=== PATIENT | female | born 1955 | race Caucasian/White ===

== ENCOUNTER 2019-09-07 11:01 | Outpatient (REF) | payer OTHER, SELFPAY | END 2019-09-07 11:02 | disposition home or self-care (01) | LOC: LAB 11:01 | PROVIDERS: Family Provider Family Medicine; PCP Family Medicine; Visit Provider Obstetrics & Gynecology | DX: N81.11 Cystocele, midline (principal) | CPT/HCPCS: 87086 ==

== ENCOUNTER 2019-09-11 08:23 | Observation (INO) | payer OTHER, SELFPAY ==
[2019-09-07 12:47] VITALS: BMI 30.2
--- NOTE | 2019-09-07 13:29 | ANES.PREANES ---
Pre-Anesthetic Assessment Pre-Anesthetic Assessment: Height/Weight: Height 1.55 m Weight 72.575 kg Preop Diagnosis: Central cystocele Proposed Procedure: Operation Date: 09/11/19 07:00 Proposed Procedures p Anterior Colporrhaphy 52650 N81.11(Not Applicable) - Ronni Teran MD Familial anesthetic complications: PONV Social: Social History: No alcohol and No tobacco Exam: Pre-Anes Outpt Exam: alert, oriented x 3, clear to auscultation bilaterally and regular rate & rhythm Airway: Cervical ROM: WNL MP: 2 Additional comments: missing Pulmonary: Pulmonary: COPD Comments: steroids within last year for COPD, not on o2, no hospital admissions CV/HEM: CV/HEM: None reported : : None reported Hepatic: Hepatic: None reported GI: GI: GERD Metabolic: Metabolic: None reported Musc/skel: Musc/skel: None reported Neuropsych: Neuropsych: None reported Anesthetic Plan: ASA status: II Anesthesia: General Risk of > 500 ml blood loss (7ml/kg in children): Yes, adequate IV access and fluids planned PFSH Anesthesia PFSH: Social History Smoking and tobacco status: former smoker Alcohol intake: current Alcohol intake frequency: holidays/special occasions only Data Anesthesia Cardiac Studies: No Data to Display
[2019-09-11] VITALS (13 sets, daily range): BP systolic 98–149; BP diastolic 63–91; PULSE 53–86; RESP 14–22; TEMP 36.4–36.9; O2SAT 93–100
--- NOTE | 2019-09-11 06:48 | P.HPUD_ITS ---
H&P update H&P Update: DATE OF SURGERY/PROCEDURE: 09/11/19 DATE H&P PERFORMED: H&P UPDATE INFORMATION: H&P completed within last 30 days, No changes to prior documentation and H&P is in [facility] on date indicated PREOP DIAGNOSIS: Midline Cystocele PLANNED PROCEDURE: Operation Date: 09/11/19 07:00 Proposed Procedures p Anterior Colporrhaphy 70553 N81.11(Not Applicable) - Ronni Teran MD Full H&P Perinent History: Medical/Surgical History: Medical History (Updated 09/10/19 @ 17:28 by Ronni Teran MD) COPD (chronic obstructive pulmonary disease) (Acute) Gastroesophageal reflux (Acute) Hydradenitis (Acute) Family History: Family History (Updated 09/03/19 @ 13:32 by Sumaya Ortega, RN) Mother Ovarian cancer Stroke Hypertension Hypercholesteremia Father Heart disease Social History: Social History Smoking and tobacco status: former smoker Alcohol intake: current Alcohol intake frequency: holidays/special occasions only
[2019-09-11] MEDS: phenazopyridine 100 mg Tablet 200 MG PO ×2 (06:49→14:48)
[2019-09-11] MEDS: sodium chloride 0.9% 1,000 ML 30 ML IV (06:49)
[2019-09-11] MEDS: ketorolac 30 mg/mL INJ IVP ×2 (06:51→14:48)
--- NOTE | 2019-09-11 06:56 | P.ANESUD_ITS ---
Pre-Anesthetic Update Pre-Anesthetic Assessment: Date of Surgery/Procedure: 09/11/19 Preop Nickie gnosis: Midline Cystocele Proposed Procedure: Operation Date: 09/11/19 07:00 Proposed Procedures p Anterior Colporrhaphy 27154 N81.11(Not Applicable) - Ronni Teran MD Any changes to Pre-Anesthetic Assessment?: No Last Intake: NPO > 8 hrs Exam: Pre-Anes Outpt Exam: alert, oriented x 3, clear to auscultation bilaterally and regular rate & rhythm Cardiac Studies: No Data to Display
[2019-09-11] MEDS: vasopressin 20 unit/mL INJ INJECTION (07:48)
--- NOTE | 2019-09-11 08:23 | P.OP_ITS ---
Operative Report Date of procedure: September 11, 2019 Pre-op Diagnosis: Midline Cystocele Post-op Diagnosis: Midline cystocele. Procedure Done: Anterior colporrhaphy Specimens removed/disposition: None Surgeon: Ronni Teran Anesthesia: General Estimated blood loss (mL): 20 IV fluids (mL): 500 Brief History: Patient is a 64-year-old white female 2, para 2 status post hysterectomy 1978 who had presented to the office with a complaint of a bulge at the vaginal opening that had been present for a while . She states that it has not worsened since she first noticed it. The bulge protrudes further with standing and straining. She denied any pain associated with that she denied any vaginal bleeding. She denied any urinary symptoms or urinary incontinence. On examination she had been found to have a well supported vaginal cuff with a second-degree midline cystocele at rest which descends to a third degree with Valsalva. Treatment options were discussed with her and she wished to proceed to surgical repair. Procedure: Patient was taken to the operating room were general anesthesia was obtained. She was prepped and draped in usual sterile fashion dorsal supine position with legs in Eduardo style stirrups. Sequential compression boots were placed prior to starting the case. Exam under anesthesia was performed. She was noted to have third-degree cy stocele. She had minimal vault prolapse under anesthesia. Chandler catheter was inserted. Anterior vaginal wall was injected with dilute Pitressin solution. A midline incision was made along the anterior vaginal wall. The edges were grasp with Allis clamps and skin was dissected from the vesico-vaginal fascia using a combination of sharp and blunt dissection. This was extended from the mid uret hra to the vaginal vault and to the lateral aspects of the anterior vaginal wall. Due to the degree of prolapse, decision was made to perform a 2 layer reduction of the cystocele. Using 2-0 Vicryl suture, stitches were placed approximately a third of the distance from the midline to the lateral wall in the vesico-vaginal fascia. These were brought across to the contralateral side and placed at approximately the same distance from the midline and at approximately the same level. Multiple stitches were placed along the anterior wall. These were then tied, reducing the cystocele. Using 2-0 Vicryl suture, stitches were placed laterally into the lateral sides of the vesico-vaginal fascia and brought across to the contralateral side at approximately the same level, picking up the lateral side. Multiple stitches were placed along the anterior wall. These were tied in the midline eliminating the cystocele. Excess vaginal mucosa was excised. The vaginal mucosa was closed using 3-0 Steve ryl suture in a running locking fashion. The vagina was packed with 1 inch Nu Gauze. Patient tolerated procedure well. Sponge, needle, and instrument counts were correct. DRAINS: Chandler catheter COMPLICATIONS: None FINDINGS: Third-degree cystocele with minimal vault prolapse. POSTOPERATIVE STATUS: The patient was transferred to the recovery room in satisfactory condition.
[2019-09-11] MEDS: ondansetron 2 mg/ML SDV 2 mL 4 MG IVP ×2 (09:35→10:58)
--- NOTE | 2019-09-11 10:11 | ANES.PREANE2 ---
Pre-Anesthetic Assessment Pre-Anesthetic Assessment: Height/Weight: Height 1.55 m Weight 72.575 kg Temp Pulse Resp BP Pulse Ox 98.2 F 58 L 17 131/91 94 09/11/19 08:55 09/11/19 08:55 09/11/19 08:55 09/11/19 08:55 09/11/19 08:55 Preop Diagnosis: Midline Cystocele Proposed Procedure: Operation Date: 09/11/19 07:00 Proposed Procedures p Anterior Colporrhaphy 05147 N81.11(Not Applicable) - Ronni Teran MD Last intake: Intake Last Liquid Date 09/10/19 Last Liquid Time 21:00 Last Solid Date 09/10/19 Last Solid Time 21:00 Meds/Allergies Current Medications: Current Medications Generic Name Dose Route Start Last Admin Trade Name Freq PRN Reason Stop Dose Admin Ondansetron HCl 4 mg 09/11/19 09:02 09/11/19 09:35 Zofran IVP 4 mg Q4H PRN Administration NAUSEA AND VOMITI NG PFSH Anesthesia PFSH: Social History Smoking and tobacco status: former smoker Alcohol intake: current Alcohol intake frequency: holidays/special occasions only Data Anesthesia Cardiac Studies: No Data to Display
[2019-09-11] MEDS: scopolamine 1.5 Patch 1 PATCH TRANSDERMA (11:00)
[2019-09-11] MEDS: lactated ringers 1,000 ML 120 ML IV (16:04)
[2019-09-11] MEDS: docusate sodium 100 mg Capsule PO (19:17)
[2019-09-11] MEDS: acetaminophen 325 mg Tablet 650 MG PO (19:19)
[2019-09-12] MEDS: lactated ringers 1,000 ML 120 ML IV (01:03)
[2019-09-12] MEDS: phenazopyridine 100 mg Tablet 200 MG PO ×2 (01:04→08:35)
[2019-09-12 04:10] VITALS: BP 104/70; PULSE 74; RESP 18; TEMP 36.6; O2SAT 95
[2019-09-12 05:15] LABS: Basophils % 0.7 %; Eosinophils # 0.2 10^3/uL (0.0-0.8); Hematocrit 36.8 % (37.0-47.0); Hemoglobin 11.4 g/dL (11.5-15.3); Mean Corpuscular Hemoglobin 28.4 pg (28.0-34.0); Mean Corpuscular Volume 91.8 fL (81-99); Mean Platelet Volume 12.8 fL (7.4-10.4); Monocytes # 0.5 10^3/uL (0.2-0.9); Monocytes % 8.4 %; Neutrophils # 3.3 10^3/uL (1.8-7.7); Neutrophils % 54.6 %; Nucleated Red Blood Cells % 0 %; Platelet Count 167 10^3/cmm (130-400); Red Blood Count 4.01 10^6/uL (4.1-5.3); Red Cell Distribution Width 14.3 % (12.1-15.1); White Blood Count 6.1 10^3/uL (4.0-10.0)
[2019-09-12] MEDS: pantoprazole DR 40 mg Tablet PO (08:35)
[2019-09-12] MEDS: docusate sodium 100 mg Capsule PO (08:35)
[2019-09-12 08:40] VITALS: BP 129/79; PULSE 80; RESP 16
--- NOTE | 2019-09-12 09:35 | P.PN_ITS ---
Subjective Subjective: Interval history: States doing much better this morning. States nausea and vomiting has gone completely away now. States pain is been well controlled. Denies lightheadedness or dizziness with ambulation. Denies shortness of breath or chest pains. Reports tolerating a regular diet this morning. Vitals/I&O/Wt Last Vital Signs Temp 97.9 F 09/12/19 04:10 Pulse 80 09/12/19 08:40 Resp 16 09/12/19 08:40 BP 129/79 09/12/19 08:40 Pulse Ox 95 09/12/19 04:10 09/11/19 09/12/19 09/12/19 22:59 06:59 14:59 Intake Total 501 / 551 1000 / 1551 774 / 774 Output Total 1900 / 2470 1300 / 3770 250 / 250 Balance -1399 / -1919 -300 / -2219 524 / 524 Physical Exam Const: COMMON NORMALS: no apparent distress, average body habitus, alert and well nourished GENERAL APPEARANCE: well developed ORIENTATION/CONSCIOUSNESS: Yes oriented to person, Yes oriented to place and Yes oriented to time Resp: COMMON NORMALS: normal respiratory effort and clear to auscultation bilaterally AUSCULTATION: clear to auscultation bilaterally Cardio: COMMON NORMALS: regular rate, regular rhythm, no gallops, no murmurs and no rub RATE: regular rate RHYTHM: regular rhythm GI: COMMON NORMALS: soft to palpation, no hepatosplenomegaly and no masses AUSCULTATION: Yes normoactive bowel sounds PALPATION: Yes soft, Yes tender (Suprapubic), Yes no hepatosplenomegaly and No hernia : EXTERNAL FEMALE EXAM: No hernia Neuro: SENSORIUM/ORIENTATION: Yes alert, Yes oriented to person, Yes oriented to place and Yes oriented to time Psych: COMMON NORMALS: affect normal MOOD & AFFECT: Yes euthymic mood Urinary Catheter Management^: Chandler: Cath Placed During This Visit: yes, but has since been removed by the nurse Reason for Continuing Indwelling Catheter: Perioperative Use in Selected Surgeries Urinary Catheter Date of Insertion: 09/11/19 Urinary Catheter Time of Insertion: 07:40 Date Urinary Catheter Removed: 09/12/19 Time Urinary Catheter Discontinued: 07:35 Data : 09/12/19 04:08 A&P Assessment and plan (1) Cystocele, midline: Postoperative day 1, status post anterior colporrhaphy. Patient is doing well overall today. She had significant nausea and vomiting yesterday after surgery. However, this is now resolved. Increase activities today. Chandler catheter and vaginal packing were removed this morning. Voiding trials have been started. Status: Acute Code(s): N81.11 - Cystocele, midline (2) COPD (chronic obstructive pulmonary disease): Patient's inhaler has been continued as needed. Status: Acute Code(s): J44.9 - Chronic obstructive pulmonary disease, unspecified Attestations Medical Necessity Statement*: Patient is first day following surgery. Plan is for her to go home today. 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
[2019-09-12] MEDS: LORazepam 0.5 mg Tablet PO (09:51)
[2019-09-12 10:52] VITALS: BP 119/77; PULSE 80; RESP 17; TEMP 37
[2019-09-12 10:56] VITALS: BP 119/77; PULSE 80; RESP 17; TEMP 37
--- NOTE | 2019-09-12 11:27 | PM.DCS ---
Discharge Providers Date of Admission: 09/11/19 08:23 Date of Discharge: Date of Discharge: September 12, 2019 Attending Provider at Admission: Ronni Teran MD Attending Provider at Discharge: Ronni Teran MD Primary Care Provider: Ryan Connor MD Diagnoses at Discharge Discharge Diagnosis (1) Cystocele, midline: Status: Acute (2) COPD (chronic obstructive pulmonary disease): Status: Acute Reason for Visit Reason for Visit: Reason For Visit: Midline Cystocele N81.11 Physical Exam Urinary Catheter Management^: Chandler: Cath Placed During This Visit: yes, but has since been removed by the nurse Reason for Continuing Indwelling Catheter: Perioperative Use in Selected Surgeries Urinary Catheter Date of Insertion: 09/11/19 Urinary Catheter Time of Insertion: 07:40 Date Urinary Catheter Removed: 09/12/19 Time Urinary Catheter Discontinued: 07:35 Discharge Data Data Completed and Pending: Labs from last 24 hours 09/12/19 04:08 WBC 6.1 RBC 4.01 L Hgb 11.4 L Hct 36.8 L MCV 91.8 MCH 28.4 MCHC 31.0 RDW 14.3 Plt Count 167 MPV 12.8 H Neut % (Auto) 54.6 Lymph % (Auto) 33.0 [place] % (Auto) 8.4 Eos % (Auto) 3.0 Baso % (Auto) 0.7 Neut # (Auto) 3.3 Lymph # (Auto) 2.0 [place] # (Auto) 0.5 Eos # (Auto) 0.2 Baso # (Auto) 0.0 Nucleated RBC % (a uto) 0 Nucleated RBCs # 0.0 Vitals: Last Vital Signs Temp 98.6 F 09/12/19 10:56 Pulse 80 09/12/19 10:56 Resp 17 09/12/19 10:56 BP 119/77 09/12/19 10:56 Pulse Ox 95 09/12/19 04:10 Discharge Plan Discharge Patient Disposition: Home, Self-Care Condition: Stable Prescriptions: Continued lansoprazole 30 mg tablet,disintegrat, delay rel 30 mg PO QDAY RF: 0 naproxen sodium [Aleve] 220 mg capsule 220 mg PO Q12H RF: 0 Spiriva Respimat 2.5 mcg/actuation mist 2 puff INHALATION .PRN PRN (Reason: Dyspnea) RF: 0 Held estradiol [Estrace] 0.01 % (0.1 mg/gram) cream 0.5 gm VAGINAL .twice weekly Qty: 42.5 RF: 0 Hold Instructions: Resume on 10/03/19. will determine when to restart after office visit. Discharge Orders: Discharge Order (Routine); Ordered 09/12/19 Ordered By: Ronni Teran Referrals: Ronni Teran MD [Physician] - 10/04/19 12:45 pm (Please keep scheduled follow up appointments on October 04, 2019) Discharge Diet: Advance as tolerated and Regular Discharge Activity: Limit activity as instructed Patient Instructions: Cystocele (GEN), Chronic Urinary Retention in Women (GEN), OB Discharge Report, OB Laproscopic Surgery - [facility], OB Anesthesia Instructions, OB Food/Drug Interaction Guide Discharge Attestations Time Spent in Discharge Care*: less than 30 min Quality Metrics Clinical Quality Measures During this hospital stay, did patient experience: None Coding Level of Care Code 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
== END 2019-09-12 11:58 | disposition home or self-care (01) ==
LOC: OBGYN 08:26
PROVIDERS: Admitting Provider Obstetrics & Gynecology; Family Provider Family Medicine; PCP Family Medicine; Visit Provider Obstetrics & Gynecology
PROC: 0JQC0ZZ Repair Pelvic Region Subcutaneous Tissue and Fascia, Open Approach (ICD-10-PCS; CPT 57240; principal; 2019-09-11 07:00)
DX: N81.11 Cystocele, midline (principal); Z90.710 Acquired absence of both cervix and uterus; J44.9 Chronic obstructive pulmonary disease, unspecified; Z82.49 Family history of ischemic heart disease and other diseases of the circulatory system; Z80.41 Family history of malignant neoplasm of ovary; Z87.891 Personal history of nicotine dependence; Z79.82 Long term (current) use of aspirin; Z79.1 Long term (current) use of non-steroidal anti-inflammatories (NSAID); L73.2 Hidradenitis suppurativa
CPT/HCPCS: 57240; 12345; 36415; 51798; 73221; 85025; 96361; 96374; 96375; G0378; J0690; J1885; J2405; J2704; J2710; J3010; J3490; J7030

== ENCOUNTER 2020-08-05 22:02 | Emergency (ER) | payer BC, SELFPAY ==
[2020-08-05 22:14] VITALS: BP 126/72; PULSE 96; RESP 24; TEMP 36.5; O2SAT 95; BMI 32.1
--- NOTE | 2020-08-05 22:53 | XRR_ITS ---
PROCEDURE INFORMATION: Exam: XR Chest, 1 View Exam date and time: 08/05/2020 11:00 PM Age: 65 years old Clinical indication: Shortness of breath; Additional info: SOB TECHNIQUE: Imaging protocol: XR of the chest Views: 1 view. COMPARISON: [facility] Chest 2 views 12/20/2018 7:28 AM FINDINGS: Lungs: Unremarkable. No consolidation. Pleural space: Unremarkable. No pleural effusion. No pneumothorax. Heart/Mediastinum: Unremarkable. No cardiomegaly. Bones/joints: Unremarkable. XR/XR chest 1V portable [id number] IMPRESSION: No acute findings.
--- NOTE | 2020-08-05 22:53 | ECG_ITS ---
[facility] Test Date: 2020-08-05 Pat Name: Kristi Noonan Department: Room: Gender: Female Rn Observation: : 1955 Requested By: Dago Shipman Order Number: [id number] Dobson MD: Doris Valencia M.D. 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 [email or web address]
--- NOTE | 2020-08-05 22:55 | ED_ITS ---
HPI - COVID General: Chief Complaint: COVID symptoms Stated Complaint: Covid symptoms Time Seen by Provider: 08/05/20 22:53 Triage information: Has fever, cough or shortness of breath . Exposure to COVID + person last 14 days History of Present Illness: HPI Narrative: Patient is a 65-year-old female comes to the ED with Covid symptoms. Past medical history of COPD. Patient is not on any oxygen at home. Patient says her tested positive for COVID- 19 last week. She has not gotten any Covid testing since her tested positive. She states that she has had shortness of breath, body aches, nausea/vomiting and diarrhea since July 31. Patient says she has had multiple episodes of emesis over the past several days and states she is not eaten much since onset of symptoms. Has a dry cough nonproductive cough for the last couple days as well. Patient has an inhaler at home for COPD and she uses it and says she has some mild improvement in symptoms. Endorses fever. COVID 19 common symptoms: positive fever(s), chills, non-productive cough, body aches, nausea, vomiting and diarrhea; negative productive cough, dyspnea, fatigue, headache(s), throat pain or nasal congestion COVID 19 other sytmptoms: negative chest pain COVID Results: SARS-CoV-2 Antigen (Rapid) Positive (Negative) H 08/05/20 23:51 08/05/20 Review of Systems Const: Reports: fever(s), chills, body aches and change in appetite (decreased); Denies: fatigue Eyes: Denies: change in vision or eye discomfort ENMT: Denies: throat pain, odynophagia, nasal discharge or nasal congestion Card: Denies: chest pain, palpitations, edema, swelling of feet/ankles, dyspnea on exertion or orthopnea Resp: Reports: non-productive cough; Denies: dyspnea or productive cough GI: Reports: nausea, vomiting and diarrhea; Denies: abdominal pain, constipation or hematochezia : Denies: flank pain, dysuria or hematuria Musc: Denies: neck pain, back pain or extremity swelling Skin/Breast: Denies: rash or new lesions Neuro: Denies: headache(s), numbness in extremities or weakness in extremities [facility] ED PFSH: Medical History COPD (chronic obstructive pulmonary disease) Gastroesophageal reflux Hydradenitis Surgical History History of total vaginal hysterectomy (TVH) (~1978) TVH with questionable BSO (patient does not know if ovaries were removed or not). History of tubal ligation LOW VERTICAL INCISION History of vaginal surgery (09/11/19) Anterior colporrhaphy. Performed by Dr. Teran at [facility] in [place], [place]. Family History Mother Ovarian cancer Stroke Hypertension Hypercholesteremia Father Heart disease Social History Smoking and tobacco status: former smoker Alcohol intake: current Alcohol intake frequency: holidays/special occasions only Physical Exam Const: COMMON NORMALS: no acute distress, patient oriented x3 and alert GENERAL APPEARANCE: cooperative and comfortable HENMT: COMMON NORMALS: normocephalic HEAD & SCALP: normocephalic MOUTH: Normal oral and palatal mucosa present and moist mucous membranes abnormal (mild) Details: parched THROAT: posterior oropharynx normal and uvula midline Eye: COMMON NORMALS: Equal, round and reactive pupils present PUPIL: Yes Equal, round and reactive pupils present Neck/C-Spine: COMMON NORMALS: supple GENERAL: Yes normal visual inspection Resp: COMMON NORMALS: normal respiratory effort, No retractions, No use of accessory muscles and clear to auscultation bilaterally EFFORT & INSPECTION: Yes able to speak in complete sentences and Yes tachypneic (Respiration rate around 22) AUSCULTATION: clear to auscultation bilaterally Cardio: COMMON NORMALS: regular rate, regular rhythm, S1 normal heart sound present, S2 normal heart sound present, No gallops present (Cardio), No clicks present (Cardio), No murmurs present (Cardio) and Peripheral pulses 2+ throughout RATE: regular rate RHYTHM: regular rhythm HEART SOUNDS: S1 normal heart sound present and S2 normal heart sound present PERIPHERAL PULSES: Peripheral pulses 2+ throughout GI: COMMON NORMALS: Normal to inspection, nondistended, normoactive bowel sounds present, Soft to palpation, non-tender and no masses PALPATION: Yes Soft to palpation : COMMON NORMALS: Yes no CVA tenderness BLADDER/KIDNEY EXAM: Yes no CVA tenderness Back/Pelvis: COMMON NORMALS: no CVA tenderness Extremity: COMMON NORMALS: normal to inspection and no pedal edema Neuro: COMMON NORMALS: patient oriented x3 and moves all extremities SENSORIUM/ORIENTATION: Yes alert Skin: GENERAL SKIN EXAM: dry skin Course Reevaluation(s): Reevaluation #1: Patient is a candidate for monoclonal antibody treatment. I discussed monoclonal antibody treatment risk benefits with patient and patient would like to get treatment. I told her I will fill out all the forms needed and only the consent form signed by her to get her set up for monoclonal antibody treatment tomorrow at outpatient services at [facility]. Time: 01:25 Vital Signs: Vital signs: Vital Signs Temperature 97.7 F 08/05/20 22:14 Pulse Rate 94 08/06/20 01:08 Respiratory Rate 18 08/06/20 01:03 Blood Pressure 120/75 08/06/20 00:30 Pulse Oximetry 94 08/06/20 01:03 MDM - COVID MDM Narrative: Medical decision making narrative: Patient is a 65-year-old female comes to the ED with Covid symptoms specially shortness of breath. Past medical history of COPD. She does not use oxygen at home. Patient's tested positive for COVID-19 about a week ago. Lungs are clear to auscultation bilaterally. O2 sat 94% on room air and respiration rate 18. EKG showed normal sinus rhythm with no ST segment elevation or depression seen. Troponin negative. CBC and CMP was unremarkable. Covid rapid test positive. Chest x- ray showed some possible groundglass infiltrates in the lower lobes bilaterally suggestive of viral pneumonia-COVID. Patient was given IV fluids, Zofran, Solu- Medrol and albuterol inhaler treatment. Patient tested positive for Covid and having medical history of COPD she was a good candidate for monoclonal antibody treatment. I discussed monoclonal antibody treatment with patient and she agreed and would like to receive treatment. All paperwork filled out and patient signed consent form. She was told to call scheduling in the morning to schedule treatment. Patient was discharged and sent home with a prescription for azithromycin and Medrol Dosepak. Return to ED precautions given. Patient understood and agreed with plan. Lab Data: Attestation: I reviewed the patient's lab results. Labs: Lab Results 08/05/20 08/05/20 08/05/20 Range/Units 23:45 23:45 23:45 WBC 4.0 (4.0-10.0) 10^3/ uL RBC 4.81 (4.1-5.3) 10^6/u L Hgb 13.7 (11.5-15.3) g/dL Hct 43.5 (37.0-47.0) % MCV 90.4 (81-99) fL MCH 28.5 (28.0-34.0) pg MCHC 31.5 (30.0-36.0) g/dL RDW 13.8 (12.1-15.1) % Plt Count 142 (130-400) 10^3/c mm MPV 12.6 H (7.4-10.4) fL Neut % (Auto) 68.9 % Lymph % (Auto) 23.8 % [place] % (Auto) 6.8 % Eos % (Auto) 0.0 % Baso % (Auto) 0.0 % Neut # (Auto) 2.75 (1.8-7.7) 10^3/u L Lymph # (Auto) 1.0 (0.8-4.8) 10^3/u L [place] # (Auto) 0.3 (0.2-0.9) 10^3/u L Eos # (Auto) 0.0 (0.0-0.8) 10^3/u L Baso # (Auto) 0.0 (0.0-0.1) 10^3/u L Nucleated RBC % (a uto) 0 % Nucleated RBCs # 0.0 /100WBC Sodium 136 (136-145) mmol/L Potassium 3.5 (3.5-5.1) mmol/L Chloride 98 (98-107) mmol/L Carbon Dioxide 27 (22-29) mmol/L Anion Gap 14.5 (5-19) BUN 13 (8-23) mg/dL Creatinine 0.7 (0.5-0.9) mg/dL GFR Calculation 84.2 L (90-130) mL/min Glucose 112 (65-115) mg/dL Calculated Osmolal ity 283 L (285-295) mOsm/k g Calcium 9.3 (8.5-10.5) mg/dL Total Bilirubin 0.3 (0.15-1.2) mg/dL AST 45 H (0-32) U/L ALT 37 H (0-33) U/L Alkaline Phosphata se 190 H (35-105) IU/L Troponin T Baselin e 8 (0-10) ng/L Total Protein 7.2 (6.6-8.7) g/dL Albumin 4.0 (3.5-5.2) g/dL Globulin 3.2 (1.3-4.6) g/dL Lipase 51 (13-60) U/L Urine Color (Yellow) Urine Appearance (CLEAR) Urine pH (5-7) Ur Specific Gravit y (1.005-1.030) Urine Protein (Negative) Urine Glucose (UA) (Normal) Urine Ketones (Negative) Urine Blood (Negative) Urine Nitrate (Negative) Urine Bilirubin (Negative) Urine Urobilinogen (Negative) mg/dL Ur Leukocyte Aggie ase (Negative) Urine RBC (0-2) /hpf Urine WBC (0-5) /hpf Ur Squamous Epith Cells (0-5) /hpf Amorphous Sediment Urine Bacteria (NONE) /hpf SARS-CoV-2 Ag (Rap id) (Negative) 08/05/20 08/06/20 Range/Units 23:51 00:33 WBC (4.0-10.0) 10^3/ uL RBC (4.1-5.3) 10^6/u L Hgb (11.5-15.3) g/dL Hct (37.0-47.0) % MCV (81-99) fL MCH (28.0-34.0) pg MCHC (30.0-36.0) g/dL RDW (12.1-15.1) % Plt Count (130-400) 10^3/c mm MPV (7.4-10.4) fL Neut % (Auto) % Lymph % (Auto) % [place] % (Auto) % Eos % (Auto) % Baso % (Auto) % Neut # (Auto) (1.8-7.7) 10^3/u L Lymph # (Auto) (0.8-4.8) 10^3/u L [place] # (Auto) (0.2-0.9) 10^3/u L Eos # (Auto) (0.0-0.8) 10^3/u L Baso # (Auto) (0.0-0.1) 10^3/u L Nucleated RBC % (a uto) % Nucleated RBCs # /100WBC Sodium (136-145) mmol/L Potassium (3.5-5.1) mmol/L Chloride (98-107) mmol/L Carbon Dioxide (22-29) mmol/L Anion Gap (5-19) BUN (8-23) mg/dL Creatinine (0.5-0.9) mg/dL GFR Calculation (90-130) mL/min Glucose (65-115) mg/dL Calculated Osmolal ity (285-295) mOsm/k g Calcium (8.5-10.5) mg/dL Total Bilirubin (0.15-1.2) mg/dL AST (0-32) U/L ALT (0-33) U/L Alkaline Phosphata se (35-105) IU/L Troponin T Baselin e (0-10) ng/L Total Protein (6.6-8.7) g/dL Albumin (3.5-5.2) g/dL Globulin (1.3-4.6) g/dL Lipase (13-60) U/L Urine Color Yellow (Yellow) Urine Appearance Clear (CLEAR) Urine pH 5.0 (5-7) Ur Specific Gravit y 1.015 (1.005-1.030) Urine Protein Neg (Negative) Urine Glucose (UA) Norm (Normal) Urine Ketones 1+ H (Negative) Urine Blood Neg (Negative) Urine Nitrate Negative (Negative) Urine Bilirubin Neg (Negative) Urine Urobilinogen Norm (Negative) mg/dL Ur Leukocyte Aggie ase Negative (Negative) Urine RBC 0-4 H (0-2) /hpf Urine WBC 0-4 H (0-5) /hpf Ur Squamous Epith Cells 10-15 H (0-5) /hpf Amorphous Sediment Not Reportable Urine Bacteria 1+ H (NONE) /hpf SARS-CoV-2 Ag (Rap id) Positive H (Negative) Imaging Data: CXR: Attestation: I personally reviewed and interpreted this imaging study as follows: My impression: Chest x-ray?groundglass appearance of the lower lobes bilaterally suggestive of viral pneumonitis likely Covid. EKG Data: EKG 1: Attestation: I personally reviewed and interpreted this EKG as follows: EKG interpretation date: 08/06/20 Interpretation: Normal sinus rhythm, 87 bpm, no ST segment elevation or depression seen. COVID Results: SARS-CoV-2 Antigen (Rapid) Positive (Negative) H 08/05/20 23:51 08/05/20 Discharge Plan Discharge Patient Disposition: Home Clinical Impression: COVID-19 Condition: Stable Prescriptions: New azithromycin 250 mg tablet See Rx Instructions .ROUTE .COMPLEX Qty: 6 RF: 0 methylprednisolone 4 mg tablets,dose pack See Rx Instructions .ROUTE .COMPLEX Qty: 21 RF: 0 No Action lansoprazole 30 mg tablet,disintegrat, delay rel 30 mg PO QDAY RF: 0 naproxen sodium [Aleve] 220 mg capsule 220 mg PO Q12H RF: 0 Spiriva Respimat 2.5 mcg/actuation mist 2 puff INHALATION .PRN PRN (Reason: Dyspnea) RF: 0 Discharge Orders: Discharge ED (Routine); Ordered 08/06/20 Ordered By: Dago Shipman Referrals: Ryan Connor MD [Primary Care Provider] - Discharge Diet: Regular Discharge Activity: Limit activity as instructed Patient Instructions: Viral Syndrome (ED) Activity Restrictions/Additional Instructions: Contact scheduling at [phone] in the morning to set up monoclonal antibody treatment. Follow-up with medical provider as directed in 7-10 days.. Self quarantine for the next 12 days. Use your previously prescribed inhaler as needed. Take medications as prescribed. Take Tylenol for fevers. Drink plenty of fluids and stay hydrated. Symptom management with [id number] cough and nasal decongestant meds. Return to the ER or your medical provider if condition worsens. Please read and understand discharge instructions. If any questions, please ask. Coding Level of Care Code ED Blood Bank Calendar Control Clerk for Teto Fwd Exam Comprehensive
[2020-08-05] MEDS: ondansetron 2 mg/ML SDV 2 mL 4 MG IVP (23:41)
[2020-08-05] MEDS: sodium chloride 0.9% 1,000 ML 999 ML IV (23:42)
[2020-08-05 23:57] VITALS: BP 127/73; PULSE 95; O2SAT 92
[2020-08-06 00:07] LABS: Hematocrit 43.5 % (37.0-47.0); Hemoglobin 13.7 g/dL (11.5-15.3); Lymphocytes % 23.8 %; Mean Corpuscular HGB Conc 31.5 g/dL (30.0-36.0); Mean Corpuscular Hemoglobin 28.5 pg (28.0-34.0); Mean Corpuscular Volume 90.4 fL (81-99); Mean Platelet Volume 12.6 fL (7.4-10.4); Monocytes # 0.3 10^3/uL (0.2-0.9); Monocytes % 6.8 %; Neutrophils # 2.75 10^3/uL (1.8-7.7); Neutrophils % 68.9 %; Nucleated Red Blood Cells % 0 %; Platelet Count 142 10^3/cmm (130-400); Red Blood Count 4.81 10^6/uL (4.1-5.3); Red Cell Distribution Width 13.8 % (12.1-15.1)
[2020-08-06 00:25] LABS: Troponin(5th) Baseline 8 ng/L (0-10)
[2020-08-06 00:27] LABS: Alanine Aminotransferase 37 U/L (0-33); Alkaline Phosphatase 190 IU/L (35-105); Anion Gap 14.5 (5-19); Aspartate Amino Transferase 45 U/L (0-32); Blood Urea Nitrogen 13 mg/dL (8-23); Calcium 9.3 mg/dL (8.5-10.5); Carbon Dioxide 27 mmol/L (22-29); Chloride 98 mmol/L (98-107); Globulin 3.2 g/dL (1.3-4.6); Glomerular Filtration Rate 84.2 mL/min (90-130); Glucose 112 mg/dL (65-115); Lipase 51 U/L (13-60); Osmolality Calculated 283 mOsm/kg (285-295); Potassium 3.5 mmol/L (3.5-5.1); Sodium 136 mmol/L (136-145); Total Bilirubin 0.3 mg/dL (0.15-1.2); Total Protein 7.2 g/dL (6.6-8.7)
[2020-08-06 00:30] VITALS: BP 120/75; PULSE 90; O2SAT 92
[2020-08-06 00:39] LABS: SARS Covid-2 Antigen Positive (Negative)
[2020-08-06 00:47] LABS: Bilirubin Urine Neg (Negative); Blood Urine Neg (Negative); Glucose Urine UA Norm (Normal); Ketones Urine 1+ (Negative); Leukocyte Esterase Urine Negative (Negative); Nitrate Urine Negative (Negative); Protein Urine Neg (Negative); Specific Gravity, Urine 1.015 (1.005-1.030); Urine Appearance Clear (CLEAR); Urine Color Yellow (Yellow); Urobilinogen Urine Norm (Negative)
[2020-08-06 00:48] LABS: Add Urine Culture? No; Bacteria Urine 1+ /hpf; RBC Urine 0-4 /hpf (0-2); WBC Urine 0-4 /hpf (0-5)
--- NOTE | 2020-08-06 00:53 | ECG_ITS ---
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 Measurements Intervals [place] Rate: 87 P: 56 OR: 162 QRS: -15 QRSD: 87 T: 60 QT: 357 QTc: 431 Interpretive Statements SINUS RHYTHM POSSIBLE RIGHT VENTRICULAR CONDUCTION DELAY [RSR (QR) IN V1/V2] MINIMAL ST DEPRESSION [0.025+ mV ST DEPRESSION] Compared to ECG 08/05/2020 22:13:16 Sinus tachycardia no longer present ST (T wave) deviation still present Electronically Signed On 08-06-2020 16:55:15 RESEARCH NEUROPSYCHOLOGIST by Doris Valencia M.D. [id number] f
[2020-08-06 01:03] VITALS: PULSE 90; RESP 18; O2SAT 93; O2SAT 94
[2020-08-06] MEDS: albuterol 8 gm MDI 2 PUFF INHALATION (01:03)
[2020-08-06 01:08] VITALS: PULSE 94
[2020-08-06 02:08] VITALS: BP 139/81; PULSE 94; O2SAT 90
== END 2020-08-06 02:10 | disposition home or self-care (01) ==
PROVIDERS: Emergency Provider Physician Assistant; PCP Family Medicine
DX: U07.1 COVID-19 (principal); J44.9 Chronic obstructive pulmonary disease, unspecified; Z87.891 Personal history of nicotine dependence
CPT/HCPCS: 12345; 71045; 80053; 81001; 83690; 84484; 85025; 87426; 93005; 94640; 96361; 96374; 96375; 99283; 99284; 99291; J2405; J2930; J3535; J7030

== ENCOUNTER 2020-08-06 10:01 | Outpatient (CLI) | payer BC, SELFPAY ==
[2020-08-06 10:12] VITALS: BP 118/83; PULSE 101; RESP 18; TEMP 36.3; O2SAT 94; BMI 28.3
[2020-08-06 11:04] VITALS: BP 115/73; PULSE 85; RESP 20; TEMP 36.6; O2SAT 93
[2020-08-06 11:15] VITALS: BP 116/68; PULSE 87; RESP 19; TEMP 36.6; O2SAT 90
[2020-08-06 12:55] VITALS: BP 116/75; PULSE 74; RESP 18; TEMP 36.6; O2SAT 92
[2020-08-06 13:01] VITALS: BP 116/75; PULSE 74; RESP 17; TEMP 36.6; O2SAT 92
--- NOTE | 2020-08-12 14:48 | DCPLANNER ---
Addendum entered by Tosin Molina 08/19/20 13:19: manager parking called to check on patient after 10 days, unable to speak with patient, a voicemail was left for patient to return family preservation caseworker phone call. Addendum entered by Tosin Molina 08/14/20 15:29: manager parking called to check on patient after receiving BAM infusion. first time to speak with patient - patient stated that before the infusion, she had a headache, nausea, body aches, fever, muscle aches. After the infusion, she was still weak, exhausted, still has a headache. Stated that she is just now feeling a little better. Original Note: manager parking had message that patient received the BAM infusion. manager parking called to check on patient after receiving the infusion. manager parking called [phone] unable to speak with patient at this time, a voicemail was left for patient to return family preservation caseworker phone call.
== END 2020-08-06 12:45 | disposition home or self-care (01) ==
LOC: OPS 10:02
PROVIDERS: Family Provider Nurse Practitioner Family; PCP Family Medicine; Visit Provider Physician Assistant
DX: U07.1 COVID-19 (principal)
CPT/HCPCS: J7050

== ENCOUNTER 2020-11-25 02:37 | Emergency (ER) | payer OTHER, SELFPAY ==
[2020-11-25] VITALS (8 sets, daily range): BP systolic 116–129; BP diastolic 67–88; PULSE 76–146; RESP 16–34; TEMP 36.4; O2SAT 20–98; BMI 28.8
--- NOTE | 2020-11-25 02:53 | XRR_ITS ---
PROCEDURE INFORMATION: Exam: XR Chest Exam date and time: 11/25/2020 2:58 AM Age: 65 years old Clinical indication: Shortness of breath; Left-sided chest pain; Additional info: L lower chest pain; SOB TECHNIQUE: Imaging protocol: XR of the chest. Views: 1 view. COMPARISON: CR XR chest 1V portable [id number] 08/05/2020 11:12 PM FINDINGS: Lungs: Unremarkable. No consolidation. Pleural spaces: Unremarkable. No pleural effusion. No pneumothorax. Heart/Mediastinum: Unremarkable. No cardiomegaly. Bones/joints: Unremarkable. XR/XR chest 1V portable [id number] IMPRESSION: No acute findings.
--- NOTE | 2020-11-25 02:53 | ECG_ITS ---
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1955 Requested By: Mahad Raymundo Order Number: [id number] Reading MD: HUE ESTEBAN Measurements Intervals [place] Rate: 136 P: 76 NV: 175 QRS: 34 QRSD: 71 T: 73 QT: 368 QTc: 554 Interpretive Statements SINUS TACHYCARDIA INDETERMINATE AXIS MODERATE ST DEPRESSION [0.05+ mV ST DEPRESSION] Compared to ECG 08/06/2020 00:10:14 Indeterminate axis now present Sinus rhythm no longer present ST (T wave) deviation still present Electronically Signed On 11-25-2020 23:40:57 CDT by HUE ESTEBAN [id number]
--- NOTE | 2020-11-25 02:56 | W.ED.GENADLT ---
Documented by User: Mahad Wright MD 11/25/20 05:58 HPI - General Adult General: Chief complaint: Chest Pain Stated complaint: Left side pain, difficulty breathing Time Seen by Provider: 11/25/20 02:47 Source: patient Mode of arrival: wheelchair Limitations: no limitations History of Present Illness: MD complaint: Started having left lower anterior inferior rib cage pain approximately 4 P Location: chest Radiation: non-radiation Severity: severe Quality: stabbing and sharp Pain Consistency: constant Relieving factors: none Exacerbating factors: other (Deep inspiration or palpation.) Associated symptoms: Reports chest pain and dyspnea; Deny diaphoresis, fevers/chills, headache(s), nausea, rash, palpitations or vomiting Treatments prior to arrival: none Review of Systems Const: Reports: fever(s) (Possible low-grade fever earlier this evening); Denies: chills or diaphoresis Eyes: Denies: change in vision ENMT: Denies: throat pain Card: Reports: chest pain and other (Left lower inferior rib cage pain); Denies: palpitations Resp: Reports: dyspnea; Denies: wheezing GI: Denies: abdominal pain, nausea or vomiting : Denies: flank pain Musc: Denies: neck pain or back pain Skin/Breast: Denies: rash or pruritus Neuro: Denies: headache(s) or numbness in extremities Psych: Reports: anxiety (With hyperventilation) Alberto/Lymph: Denies: enlarged lymph nodes All/Imm: Denies: urticaria or throat swelling PFSH ED PFSH: Medical History COPD (chronic obstructive pulmonary disease) Gastroesophageal reflux Hydradenitis Surgical History History of total vaginal hysterectomy (TVH) (~1978) TVH with questionable BSO (patient does not know if ovaries were removed or not). History of tubal ligation LOW VERTICAL INCISION History of vaginal surgery (09/11/19) Anterior colporrhaphy. Performed by Dr. Teran at [facility] in [place], [place]. Family History Mother Ovarian cancer Stroke Hypertension Hypercholesteremia Father Heart disease Social History Smoking and tobacco status: former smoker Alcohol intake: current Alcohol intake frequency: holidays/special occasions only Physical Exam Const: COMMON NORMALS: patient oriented x3 and alert (Moderate anxiety, obese) HENMT: COMMON NORMALS: normocephalic and atraumatic HEAD & SCALP: normocephalic and atraumatic Eye: COMMON NORMALS: EOMs intact bilaterally Neck/C-Spine: COMMON NORMALS: full ROM, no lymphadenopathy, supple, no meningeal signs and no JVD Lymph: LYMPHATIC: no lymphadenopathy noted Chest: CHEST: Yes Symmetrical chest wall rise, No crepitus and Yes other (Moderate pain is reproducible to left inferior rib cage pain; No crepitus o) Resp: COMMON NORMALS: normal respiratory effort and clear to auscultation bilaterally EFFORT & INSPECTION: Yes able to speak in complete sentences AUSCULTATION: clear to auscultation bilaterally Cardio: COMMON NORMALS: no JVD and regular rhythm JUGULAR VENOUS DISTENTION: no JVD RATE: tachycardic RHYTHM: regular rhythm BRUITS: no abdominal aortic bruits GI: COMMON NORMALS: Normal to inspection, nondistended, normoactive bowel sounds present, Soft to palpation and non-tender (Obese) PALPATION: Yes Soft to palpation : COMMON NORMALS: Yes no CVA tenderness BLADDER/KIDNEY EXAM: Yes no CVA tenderness Back/Pelvis: COMMON NORMALS: no CVA tenderness Extremity: COMMON NORMALS: normal to inspection and full ROM Neuro: COMMON NORMALS: patient oriented x3 SENSORIUM/ORIENTATION: Yes alert (Moderate anxiety, obese) MENINGEAL SIGNS: Yes no meningeal signs SPEECH: speech normal Psych: COMMON NORMALS: mental status grossly normal (Except moderate anxiety) and Normal thought process present ACTIVITY/MOTOR BEHAVIOR: Yes appropriate eye contact THOUGHT PROCESS: Normal thought process present Course Vital Signs: Vital signs: Vital Signs Temperature 97.5 F L 11/25/20 02:43 Pulse Rate 93 11/25/20 08:27 Respiratory Rate 18 11/25/20 08:27 Blood Pressure 122/72 11/25/20 08:27 Pulse Oximetry 93 11/25/20 08:27 MDM - General Adult MDM Narrative: Medical decision making narrative: 0429: hr 99 nsr. o2 sat 98% on 2l/min o2 Care transitioned to Dr Lake Lab Data: Labs: Lab Results 11/25/20 11/25/20 11/25/20 Range/Units 02:49 02:49 02:49 WBC 12.4 H (4.0-10.0) 10^3/ uL RBC 4.81 (4.1-5.3) 10^6/u L Hgb 14.2 (11.5-15.3) g/dL Hct 44.9 (37.0-47.0) % MCV 93.3 (81-99) fL MCH 29.5 (28.0-34.0) pg MCHC 31.6 (30.0-36.0) g/dL RDW 13.7 (12.1-15.1) % Plt Count 204 (130-400) 10^3/c mm MPV 12.6 H (7.4-10.4) fL Neut % (Auto) 72.9 % Lymph % (Auto) 15.9 % [place] % (Auto) 8.2 % Eos % (Auto) 2.1 % Baso % (Auto) 0.6 % Neut # (Auto) 9.00 H (1.8-7.7) 10^3/u L Lymph # (Auto) 2.0 (0.8-4.8) 10^3/u L [place] # (Auto) 1.0 H (0.2-0.9) 10^3/u L Eos # (Auto) 0.3 (0.0-0.8) 10^3/u L Baso # (Auto) 0.1 (0.0-0.1) 10^3/u L Nucleated RBC % (a uto) 0 % Nucleated RBCs # 0.0 /100WBC PT 12.90 (12.1-14.9) SECO NDS INR 0.94 (0.8-1.2) APTT 25.7 (23.9-36.7) SECO NDS D-Dimer 0.44 (0-0.59) ug/mIFE U Sodium 139 (136-145) mmol/L Potassium 4.1 (3.5-5.1) mmol/L Chloride 103 (98-107) mmol/L Carbon Dioxide 25 (22-29) mmol/L Anion Gap 15.1 (5-19) BUN 15 (8-23) mg/dL Creatinine 0.9 (0.5-0.9) mg/dL GFR Calculation 63.0 L (90-130) mL/min Glucose 131 H (65-115) mg/dL Calculated Osmolal ity 291 (285-295) mOsm/k g Calcium 9.4 (8.5-10.5) mg/dL Total Bilirubin 0.8 (0.15-1.2) mg/dL AST 32 (0-32) U/L ALT 31 (0-33) U/L Alkaline Phosphata se 127 H (35-105) IU/L Troponin T Baselin e (0-10) ng/L Troponin T 120 Min [place] (0-10) ng/L Delta Troponin T (0-10) ABS# NT-Pro-B Natriuret Pep 41 (0-125) pg/mL Total Protein 7.5 (6.6-8.7) g/dL Albumin 4.4 (3.5-5.2) g/dL Globulin 3.1 (1.3-4.6) g/dL Lipase 35 (13-60) U/L 11/25/20 11/25/20 Range/Units 02:49 07:34 WBC (4.0-10.0) 10^3/ uL RBC (4.1-5.3) 10^6/u L Hgb (11.5-15.3) g/dL Hct (37.0-47.0) % MCV (81-99) fL MCH (28.0-34.0) pg MCHC (30.0-36.0) g/dL RDW (12.1-15.1) % Plt Count (130-400) 10^3/c mm MPV (7.4-10.4) fL Neut % (Auto) % Lymph % (Auto) % [place] % (Auto) % Eos % (Auto) % Baso % (Auto) % Neut # (Auto) (1.8-7.7) 10^3/u L Lymph # (Auto) (0.8-4.8) 10^3/u L [place] # (Auto) (0.2-0.9) 10^3/u L Eos # (Auto) (0.0-0.8) 10^3/u L Baso # (Auto) (0.0-0.1) 10^3/u L Nucleated RBC % (a uto) % Nucleated RBCs # /100WBC PT (12.1-14.9) SECO NDS INR (0.8-1.2) APTT (23.9-36.7) SECO NDS D-Dimer (0-0.59) ug/mIFE U Sodium (136-145) mmol/L Potassium (3.5-5.1) mmol/L Chloride (98-107) mmol/L Carbon Dioxide (22-29) mmol/L Anion Gap (5-19) BUN (8-23) mg/dL Creatinine (0.5-0.9) mg/dL GFR Calculation (90-130) mL/min Glucose (65-115) mg/dL Calculated Osmolal ity (285-295) mOsm/k g Calcium (8.5-10.5) mg/dL Total Bilirubin (0.15-1.2) mg/dL AST (0-32) U/L ALT (0-33) U/L Alkaline Phosphata se (35-105) IU/L Troponin T Baselin e 9 (0-10) ng/L Troponin T 120 Min [place] 7.99 (0-10) ng/L Delta Troponin T -1.01 L (0-10) ABS# NT-Pro-B Natriuret Pep (0-125) pg/mL Total Protein (6.6-8.7) g/dL Albumin (3.5-5.2) g/dL Globulin (1.3-4.6) g/dL Lipase (13-60) U/L Imaging Data^: CXR: Attestation: I personally reviewed and interpreted this imaging study as follows: My impression: Chest x-ray shows nothing acute. No pneumothorax seen. No consolidation or infiltrate EKG Data^: EKG 1: Attestation: I personally reviewed and interpreted this EKG as follows: EKG interpretation date: 11/25/20 EKG interpretation time: 02:51 Prior EKG tracings: not available for review Interpretation: .Sinus tachycardia with heart rate 136, normal QRS, normal ST segments, normal T waves, normal P waves, normal QTC, normal WV interval. Impression sinus tachycardia. Computer generated interpretation: Chest X-Ray 11/25/20 02:53 IMPRESSION: No acute findings. Chest/Abdomen/Pelvis CTA 11/25/20 04:30 IMPRESSION: 1. No pulmonary embolism. 2. No aortic dissection or aneurysm. 3. There is a large hiatal hernia. 4. Multiple hepatic cysts. 5. Cholelithiasis without cholecystitis. Radiation Dose CTDIVOL = (mGy): DLP = 1383.09 (mGy-cm) EKG 2: Attestation: I personally reviewed and interpreted this EKG as follows: EKG interpretation date: 11/25/20 EKG interpretation time: 05:20 Prior EKG tracings: available for review Interpretation: EKG shows normal sinus rhythm heart rate 86, normal axis, normal WV interval, normal QRS interval normal ST segment, normal T waves. Normal QT interval. Impression, normal EKG. Computer generated interpretation: Chest X-Ray 11/25/20 02:53 IMPRESSION: No acute findings. Chest/Abdomen/Pelvis CTA 11/25/20 04:30 IMPRESSION: 1. No pulmonary embolism. 2. No aortic dissection or aneurysm. 3. There is a large hiatal hernia. 4. Multiple hepatic cysts. 5. Cholelithiasis without cholecystitis. Radiation Dose CTDIVOL = (mGy): DLP = 1383.09 (mGy-cm) Critical Care Time Critical Care Time: Critical Care Time: Yes Total Critical Care Time: 55 Attestation: , Sinus tachycardia, hypoxia, chest pain for cardiovascular assessment Discharge Plan Discharge Patient Disposition: Home Clinical Impression: Hiatal hernia, Chest pain, pleuritic Condition: Stable Prescriptions: New Protonix 40 mg tablet,delayed release (DR/EC) 40 mg PO DAILY 56 Days RF: 0 Discontinued lansoprazole 30 mg tablet,disintegrat, delay rel 30 mg PO QDAY RF: 0 No Action naproxen sodium [Aleve] 220 mg capsule 220 mg PO Q12H RF: 0 Spiriva Respimat 2.5 mcg/actuation mist 2 puff INHALATION .PRN PRN (Reason: Dyspnea) RF: 0 azithromycin 250 mg tablet See Rx Instructions .ROUTE .COMPLEX Qty: 6 RF: 0 methylprednisolone 4 mg tablets,dose pack See Rx Instructions .ROUTE .COMPLEX Qty: 21 RF: 0 Discharge Orders: Discharge ED (Routine); Ordered 11/25/20 Ordered By: Danish Lake Referrals: Ryan Connor MD [Primary Care Provider] - Discharge Diet: Usual diet Discharge Activity: Resume usual activity Patient Instructions: Opioid Safety Activity Restrictions/Additional Instructions: Follow-up with your primary care doctor within the week. You may need to have an EGD at some point in future. Sign Out Sign Out Data: Patient Sign Out occurred on 11/25/20 at 06:05. Patient's care was discussed, and care was transferred from to Danish Lake DO. Coding Level of Care Code ED Brine Room Laborer for Chg Fwd Exam Comprehensive Documented by User: Danish Lake DO 11/29/20 06:50 HPI - General Adult General: Chief complaint: Chest Pain Stated complaint: Left side pain, difficulty breathing Time Seen by Provider: 11/25/20 02:47 History of Present Illness: HPI narrative: 65-year-old female presents emergency room with complaint of left-sided chest pain began day before she is having some shortness of breath words as well. She initially seen overnight care assumed at change of shift Onset (ago): hour(s) Radiation: non-radiation Severity: moderate Quality: aching Relieving factors: none Exacerbating factors: none Associated symptoms: Reports chest pain, cough, dyspnea and short of breath; Deny confusion, diaphoresis, decreased appetite, fevers/chills, headache(s), malaise, nausea, rash, palpitations, seizures, syncope, vomiting or weakness Treatments prior to arrival: none Review of Systems Const: Reports: fever(s) (Low-grade); Denies: malaise or diaphoresis ENMT: Denies: throat pain, ear or mastoid pain, nasal discharge or nasal congestion Card: Reports: chest pain; Denies: palpitations or syncope Resp: Reports: dyspnea GI: Denies: nausea or vomiting : Denies: flank pain, difficulty voiding, dysuria, urinary frequency or urinary urgency Skin/Breast: Denies: rash Neuro: Denies: headache(s) or confusion PFSH ED PFSH: Medical History COPD (chronic obstructive pulmonary disease) Gastroesophageal reflux Hydradenitis Surgical History History of total vaginal hysterectomy (TVH) (~1978) TVH with questionable BSO (patient does not know if ovaries were removed or not). History of tubal ligation LOW VERTICAL INCISION History of vaginal surgery (09/11/19) Anterior colporrhaphy. Performed by Dr. Teran at [facility] in [place], [place]. Family History Mother Ovarian cancer Stroke Hypertension Hypercholesteremia Father Heart disease Social History Smoking and tobacco status: former smoker Alcohol intake: current Alcohol intake frequency: holidays/special occasions only Physical Exam Const: COMMON NORMALS: no acute distress GENERAL APPEARANCE: cooperative and comfortable ORIENTATION/CONSCIOUSNESS: Yes awake, Yes oriented to person, Yes oriented to place and Yes oriented to time HENMT: COMMON NORMALS: normocephalic, atraumatic and hearing grossly normal bilaterally HEAD & SCALP: normocephalic and atraumatic Eye: COMMON NORMALS: Equal, round and reactive pupils present, EOMs intact bilaterally, conjunctivae normal and no scleral icterus CONJUNCTIVA: Yes conjunctivae normal PUPIL: Yes Equal, round and reactive pupils present Neck/C-Spine: COMMON NORMALS: full ROM, no lymphadenopathy, supple and no JVD Lymph: LYMPHATIC: no lymphadenopathy noted and no lymphedema noted Resp: COMMON NORMALS: normal respiratory effort, No retractions, No use of accessory muscles and clear to auscultation bilaterally AUSCULTATION: clear to auscultation bilaterally Cardio: COMMON NORMALS: no JVD, regular rate, regular rhythm and No murmurs present (Cardio) RATE: regular rate RHYTHM: regular rhythm GI: COMMON NORMALS: Soft to palpation and No hepatosplenomegaly present AUSCULTATION: Yes normoactive bowel sounds PALPATION: Yes Soft to palpation, No Tenderness to palpation present (GI), No Guarding due to palpation present (GI) and Yes No hepatosplenomegaly present Extremity: COMMON NORMALS: normal to inspection, capillary refill normal, no clubbing, cyanosis or edema, no calf tenderness and no pedal edema Neuro: SENSORIUM/ORIENTATION: Yes oriented to person, Yes oriented to place and Yes oriented to time Skin: COMMON NORMALS: no rashes or lesions noted GENERAL SKIN EXAM: no rashes or lesions noted Course Vital Signs: Vital signs: Vital Signs Temperature 97.5 F L 11/25/20 02:43 Pulse Rate 93 11/25/20 08:27 Respiratory Rate 18 11/25/20 08:27 Blood Pressure 122/72 11/25/20 08:27 Pulse Oximetry 93 11/25/20 08:27 MDM - General Adult MDM Narrative: Medical decision making narrative: Reviewed findings with the patient will discharge home on Protonix probably would benefit from an EGD at some point if has any worsening change return. Discussed stress test would recommend that she have it done at some point. Lab Data: Labs: Lab Results 11/25/20 11/25/20 11/25/20 Range/Units 02:49 02:49 02:49 WBC 12.4 H (4.0-10.0) 10^3/ uL RBC 4.81 (4.1-5.3) 10^6/u L Hgb 14.2 (11.5-15.3) g/dL Hct 44.9 (37.0-47.0) % MCV 93.3 (81-99) fL MCH 29.5 (28.0-34.0) pg MCHC 31.6 (30.0-36.0) g/dL RDW 13.7 (12.1-15.1) % Plt Count 204 (130-400) 10^3/c mm MPV 12.6 H (7.4-10.4) fL Neut % (Auto) 72.9 % Lymph % (Auto) 15.9 % [place] % (Auto) 8.2 % Eos % (Auto) 2.1 % Baso % (Auto) 0.6 % Neut # (Auto) 9.00 H (1.8-7.7) 10^3/u L Lymph # (Auto) 2.0 (0.8-4.8) 10^3/u L [place] # (Auto) 1.0 H (0.2-0.9) 10^3/u L Eos # (Auto) 0.3 (0.0-0.8) 10^3/u L Baso # (Auto) 0.1 (0.0-0.1) 10^3/u L Nucleated RBC % (a uto) 0 % Nucleated RBCs # 0.0 /100WBC PT 12.90 (12.1-14.9) SECO NDS INR 0.94 (0.8-1.2) APTT 25.7 (23.9-36.7) SECO NDS D-Dimer 0.44 (0-0.59) ug/mIFE U Sodium 139 (136-145) mmol/L Potassium 4.1 (3.5-5.1) mmol/L Chloride 103 (98-107) mmol/L Carbon Dioxide 25 (22-29) mmol/L Anion Gap 15.1 (5-19) BUN 15 (8-23) mg/dL Creatinine 0.9 (0.5-0.9) mg/dL GFR Calculation 63.0 L (90-130) mL/min Glucose 131 H (65-115) mg/dL Calculated Osmolal ity 291 (285-295) mOsm/k g Calcium 9.4 (8.5-10.5) mg/dL Total Bilirubin 0.8 (0.15-1.2) mg/dL AST 32 (0-32) U/L ALT 31 (0-33) U/L Alkaline Phosphata se 127 H (35-105) IU/L Troponin T Baselin e (0-10) ng/L Troponin T 120 Min [place] (0-10) ng/L Delta Troponin T (0-10) ABS# NT-Pro-B Natriuret Pep 41 (0-125) pg/mL Total Protein 7.5 (6.6-8.7) g/dL Albumin 4.4 (3.5-5.2) g/dL Globulin 3.1 (1.3-4.6) g/dL Lipase 35 (13-60) U/L 11/25/20 11/25/20 Range/Units 02:49 07:34 WBC (4.0-10.0) 10^3/ uL RBC (4.1-5.3) 10^6/u L Hgb (11.5-15.3) g/dL Hct (37.0-47.0) % MCV (81-99) fL MCH (28.0-34.0) pg MCHC (30.0-36.0) g/dL RDW (12.1-15.1) % Plt Count (130-400) 10^3/c mm MPV (7.4-10.4) fL Neut % (Auto) % Lymph % (Auto) % [place] % (Auto) % Eos % (Auto) % Baso % (Auto) % Neut # (Auto) (1.8-7.7) 10^3/u L Lymph # (Auto) (0.8-4.8) 10^3/u L [place] # (Auto) (0.2-0.9) 10^3/u L Eos # (Auto) (0.0-0.8) 10^3/u L Baso # (Auto) (0.0-0.1) 10^3/u L Nucleated RBC % (a uto) % Nucleated RBCs # /100WBC PT (12.1-14.9) SECO NDS INR (0.8-1.2) APTT (23.9-36.7) SECO NDS D-Dimer (0-0.59) ug/mIFE U Sodium (136-145) mmol/L Potassium (3.5-5.1) mmol/L Chloride (98-107) mmol/L Carbon Dioxide (22-29) mmol/L Anion Gap (5-19) BUN (8-23) mg/dL Creatinine (0.5-0.9) mg/dL GFR Calculation (90-130) mL/min Glucose (65-115) mg/dL Calculated Osmolal ity (285-295) mOsm/k g Calcium (8.5-10.5) mg/dL Total Bilirubin (0.15-1.2) mg/dL AST (0-32) U/L ALT (0-33) U/L Alkaline Phosphata se (35-105) IU/L Troponin T Baselin e 9 (0-10) ng/L Troponin T 120 Min [place] 7.99 (0-10) ng/L Delta Troponin T -1.01 L (0-10) ABS# NT-Pro-B Natriuret Pep (0-125) pg/mL Total Protein (6.6-8.7) g/dL Albumin (3.5-5.2) g/dL Globulin (1.3-4.6) g/dL Lipase (13-60) U/L EKG Data^: EKG 1: Computer generated interpretation: Chest X-Ray 11/25/20 02:53 IMPRESSION: No acute findings. Chest/Abdomen/Pelvis CTA 11/25/20 04:30 IMPRESSION: 1. No pulmonary embolism. 2. No aortic dissection or aneurysm. 3. There is a large hiatal hernia. 4. Multiple hepatic cysts. 5. Cholelithiasis without cholecystitis. Radiation Dose CTDIVOL = (mGy): DLP = 1383.09 (mGy-cm) EKG 2: Computer generated interpretation: Chest X-Ray 11/25/20 02:53 IMPRESSION: No acute findings. Chest/Abdomen/Pelvis CTA 11/25/20 04:30 IMPRESSION: 1. No pulmonary embolism. 2. No aortic dissection or aneurysm. 3. There is a large hiatal hernia. 4. Multiple hepatic cysts. 5. Cholelithiasis without cholecystitis. Radiation Dose CTDIVOL = (mGy): DLP = 1383.09 (mGy-cm) Discharge Plan Discharge Patient Disposition: Home Clinical Impression: Hiatal hernia, Chest pain, pleuritic Condition: Stable Prescriptions: New Protonix 40 mg tablet,delayed release (DR/EC) 40 mg PO DAILY 56 Days RF: 0 Discontinued lansoprazole 30 mg tablet,disintegrat, delay rel 30 mg PO QDAY RF: 0 No Action naproxen sodium [Aleve] 220 mg capsule 220 mg PO Q12H RF: 0 Spiriva Respimat 2.5 mcg/actuation mist 2 puff INHALATION .PRN PRN (Reason: Dyspnea) RF: 0 azithromycin 250 mg tablet See Rx Instructions .ROUTE .COMPLEX Qty: 6 RF: 0 methylprednisolone 4 mg tablets,dose pack See Rx Instructions .ROUTE .COMPLEX Qty: 21 RF: 0 Discharge Orders: Discharge ED (Routine); Ordered 11/25/20 Ordered By: Danish Lake Referrals: Ryan Connor MD [Primary Care Provider] - Discharge Diet: Usual diet Discharge Activity: Resume usual activity Patient Instructions: Opioid Safety Activity Restrictions/Additional Instructions: Follow-up with your primary care doctor within the week. You may need to have an EGD at some point in future. Sign Out Sign Out Data: Patient Sign Out occurred on 11/25/20 at 06:05. Patient's care was discussed, and care was transferred from to Danish Lake DO. Coding Level of Care Code ED Brine Room Laborer for Chg Fwd Exam Comprehensive
[2020-11-25] MEDS: ondansetron 2 mg/ML SDV 2 mL 4 MG IVP ×2 (02:59→05:04)
[2020-11-25] MEDS: HYDROmorphone 1 mg/mL INJ 1 mL 0.5 MG IVP (03:01)
[2020-11-25 03:04] LABS: Basophils # 0.1 10^3/uL (0.0-0.1); Basophils % 0.6 %; Eosinophils # 0.3 10^3/uL (0.0-0.8); Eosinophils % 2.1 %; Hematocrit 44.9 % (37.0-47.0); Hemoglobin 14.2 g/dL (11.5-15.3); Lymphocytes % 15.9 %; Mean Corpuscular HGB Conc 31.6 g/dL (30.0-36.0); Mean Corpuscular Hemoglobin 29.5 pg (28.0-34.0); Mean Corpuscular Volume 93.3 fL (81-99); Mean Platelet Volume 12.6 fL (7.4-10.4); Monocytes % 8.2 %; Neutrophils % 72.9 %; Nucleated Red Blood Cells % 0 %; Platelet Count 204 10^3/cmm (130-400); Red Blood Count 4.81 10^6/uL (4.1-5.3); Red Cell Distribution Width 13.7 % (12.1-15.1); White Blood Count 12.4 10^3/uL (4.0-10.0)
[2020-11-25 03:17] LABS: INR 0.94 (0.8-1.2)
[2020-11-25 03:18] LABS: Partial Thromboplastin Time 25.7 SECONDS (23.9-36.7)
[2020-11-25 03:20] LABS: D Dimer 0.44 ug/mIFEU (0-0.59)
[2020-11-25 04:21] LABS: Troponin(5th) Baseline 9 ng/L (0-10)
[2020-11-25 04:26] LABS: Alanine Aminotransferase 31 U/L (0-33); Albumin Level 4.4 g/dL (3.5-5.2); Alkaline Phosphatase 127 IU/L (35-105); Anion Gap 15.1 (5-19); Aspartate Amino Transferase 32 U/L (0-32); Blood Urea Nitrogen 15 mg/dL (8-23); Calcium 9.4 mg/dL (8.5-10.5); Carbon Dioxide 25 mmol/L (22-29); Chloride 103 mmol/L (98-107); Globulin 3.1 g/dL (1.3-4.6); Glucose 131 mg/dL (65-115); Lipase 35 U/L (13-60); NT Pro B Type Natriuretic Pept 41 pg/mL (0-125); Osmolality Calculated 291 mOsm/kg (285-295); Potassium 4.1 mmol/L (3.5-5.1); Sodium 139 mmol/L (136-145); Total Bilirubin 0.8 mg/dL (0.15-1.2); Total Protein 7.5 g/dL (6.6-8.7)
--- NOTE | 2020-11-25 04:30 | CTR_ITS ---
PROCEDURE INFORMATION: Exam: CTA Abdomen and Pelvis With Contrast Exam date and time: 11/25/2020 5:33 AM Age: 65 years old Clinical indication: Abdominal pain; Generalized; Additional info: Chest and abdominal pain; Rule out aneurysm vs embolus TECHNIQUE: Imaging protocol: Computed tomographic angiography of the abdomen and pelvis with contrast material. 3D rendering (Not supervised by radiologist): MIP and/or 3D reconstructed images were created by the technologist. Radiation optimization: All CT scans at this facility use at least one of these dose optimization techniques: automated exposure control; mA and/or kV adjustment per patient size (includes targeted exams where dose is matched to clinical indication); or iterative reconstruction. Contrast material: OMNI 350; Contrast volume: 95 ml; Contrast route: INTRAVENOUS (IV); COMPARISON: No relevant prior studies available. RADIATION DOSE METRICS: Total DLP (mGy-cm): 1383.09 FINDINGS: Lungs: There is moderate emphysema. There is round atelectasis in the lingula and left lower lobe. Mediastinal space: There is a large hiatal hernia. Pulmonary arteries: No pulmonary embolism. Aorta: No aortic dissection or aneurysm. Celiac trunk and mesenteric arteries: No occlusion or significant stenosis. Renal arteries: No occlusion or significant stenosis. Right iliac arteries: No occlusion or significant stenosis. Left iliac arteries: No occlusion or significant stenosis. Liver: The there are multiple hepatic cysts, the largest is 2.4 cm. Gallbladder and bile ducts: There is cholelithiasis without wall thickening or pericholecystic fluid. Pancreas: Unremarkable. No mass. No ductal dilation. Spleen: Unremarkable. No splenomegaly. Adrenal glands: Unremarkable. No mass. Kidneys and ureters: Unremarkable. No solid mass. No hydronephrosis. Stomach and bowel: Unremarkable. No obstruction. No mucosal thickening. Appendix: No evidence of appendicitis. Intraperitoneal space: Unremarkable. No free air. No significant fluid collection. Lymph nodes: Unremarkable. No enlarged lymph nodes. Urinary bladder: Unremarkable. No mass. Reproductive: There has been a hysterectomy. Bones/joints: No acute fracture. No dislocation. Soft tissues: Unremarkable. CT/CT angio chest abdomen pelvis IMPRESSION: 1. No pulmonary embolism. 2. No aortic dissection or aneurysm. 3. There is a large hiatal hernia. 4. Multiple hepatic cysts. 5. Cholelithiasis without cholecystitis. Radiation Dose CTDIVOL = (mGy): DLP = 1383.09 (mGy-cm)
--- NOTE | 2020-11-25 04:53 | ECG_ITS ---
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: : [id number] Requested By: Mahad Raymundo Order Number: [id number] Reading MD: HUE ESTEBAN Measurements Intervals [place] Rate: 86 P: 57 TX: 177 QRS: -24 QRSD: 92 T: 68 QT: 364 QTc: 437 Interpretive Statements SINUS RHYTHM BORDERLINE LEFT AXIS DEVIATION [QRS AXIS < -20] LOW QRS VOLTAGE IN PRECORDIAL LEADS [QRS DEFLECTION < 1.0 mV IN CHEST LEADS] Compared to ECG 08/06/2020 00:10:14 Low QRS voltage now present ST (T wave) deviation no longer present Electronically Signed On 11-25-2020 23:43:27 CDT by HUE ESTEBAN [email or web address]
[2020-11-25] MEDS: iohexol 350 mg/mL 100 mL Btl IV (05:36)
[2020-11-25 08:00] LABS: Troponin 5 2HR 7.99 ng/L (0-10)
[2020-11-25 08:31] LABS: Troponin 5 2HR Delta -1.01 ABS# (0-10)
--- NOTE | 2020-12-01 14:53 | DCPLANNER ---
human resources communications manager had message to schedule an outpatient stress test for patient. human resources communications manager faxed a signed order for the stress test to centralized scheduling. human resources communications manager will call for appointment information.
--- NOTE | 2020-12-09 07:35 | DCPLANNER ---
Patient had a stress test scheduled for 12.04.20 - was cancelled due to patient not wanting to have the stress test.
== END 2020-11-25 08:30 | disposition home or self-care (01) ==
PROVIDERS: Family Medicine; Emergency Provider Family Medicine; PCP Family Medicine
DX: R07.89 Other chest pain (principal); K44.9 Diaphragmatic hernia without obstruction or gangrene; J44.9 Chronic obstructive pulmonary disease, unspecified; Z87.891 Personal history of nicotine dependence
CPT/HCPCS: 71045; 71275; 74174; 80053; 83690; 83880; 84484; 85025; 85378; 85610; 85730; 87040; 93005; 96374; 96375; 96376; 99284; J1170; J2405; Q9967

== ENCOUNTER → 2023-11-15 09:26 | Outpatient (BNVA) | payer MEDICARE, SELFPAY | PROVIDERS: PCP Family Medicine Adult Medicine; Visit Provider Family Medicine Adult Medicine | DX: R94.4 Abnormal results of kidney function studies (principal); R06.81 Apnea, not elsewhere classified; R73.09 Other abnormal glucose; J44.9 Chronic obstructive pulmonary disease, unspecified; R07.89 Other chest pain | CPT/HCPCS: 80053; 80061; 83036; 84443; 85025 ==

== ENCOUNTER → 2025-04-22 15:49 | Outpatient (BNVA) | payer MEDICARE, OTHER, SELFPAY | PROVIDERS: PCP Family Medicine Adult Medicine; Referring Provider Nurse Practitioner Family; Visit Provider Internal Medicine | DX: J44.9 Chronic obstructive pulmonary disease, unspecified (principal); J30.2 Other seasonal allergic rhinitis; Z87.891 Personal history of nicotine dependence | CPT/HCPCS: 36415; 82103; 85025; 86003; 99204 ==

== ENCOUNTER 2025-04-24 13:46 | Outpatient (CLI) | payer MEDICARE, OTHER, SELFPAY ==
[2025-04-24 14:16] VITALS: PULSE 87; RESP 18; O2SAT 97
== END 2025-04-24 13:47 | disposition home or self-care (01) ==
LOC: RT 13:48
PROVIDERS: Absent Provider Family Medicine; PCP Family Medicine; Visit Provider Internal Medicine
DX: J44.9 Chronic obstructive pulmonary disease, unspecified (principal)
CPT/HCPCS: 94060; 94726; 94729; J7613

== ENCOUNTER 2025-04-26 10:07 | Outpatient (CLI) | payer MEDICARE, OTHER, SELFPAY ==
--- NOTE | 2025-04-26 10:15 | CT_ITS ---
WS: [id number] LDCT LUNG CANCER SCREENING HISTORY: former smoker TECHNIQUE: Axial imaging performed from the apices to 1 cm below the costophrenic angles. Coronal and sagittal reformats are submitted with axial MIP series. All CT scans at [facility] use at least one of these dose optimization techniques: automated exposure control; mA and/or kV adjustment per patient size (includes targeted exams where dose is matched to clinical indication); or iterative reconstruction. DLP: 72.20 mGy.cm DIvol: Mean CTDIvol: 1.60 (mGy) COMPARISON: 11/25/2020 Diagnostic quality: Satisfactory Lungs: Moderate pulmonary hyperinflation. Fissural nodule measuring 3 mm on the RIGHT. Short segment linear atelectasis RIGHT upper lobe, lingula and at the RIGHT costophrenic angle. No mass or nodule. Heart: Normal size heart with no pericardial effusion.. Other findings: Minimal atherosclerosis aorta. Normal size aorta and pulmonary artery. Small mediastinal and hilar lymph nodes. Small hiatal hernia. No adrenal mass. Hepatic cyst in the medial RIGHT lower lobe measures 2.2 x 1.7 cm and is stable. Increase in thoracic kyphosis. Mild anterior wedging at T10, T7, T5 and T4. CT/CT lung screening [id number] IMPRESSION: LUNG-RADS: 2-Benign Appearance or Behavior FOLLOW UP: 12 Month: Continue annual screening with LDCT OTHER FINDINGS (S MODIFIER): None.
== END 2025-04-26 10:08 | disposition home or self-care (01) ==
LOC: RAD 10:09
PROVIDERS: Family Provider Nurse Practitioner Family; PCP Family Medicine; Visit Provider Internal Medicine
DX: Z12.2 Encounter for screening for malignant neoplasm of respiratory organs (principal); Z87.891 Personal history of nicotine dependence; J98.4 Other disorders of lung
CPT/HCPCS: 71271

== ENCOUNTER → 2025-05-30 10:10 | Outpatient (BNVA) | payer MEDICARE, OTHER, SELFPAY | PROVIDERS: Family Provider Nurse Practitioner Family; PCP Family Medicine; Visit Provider Internal Medicine | DX: J44.9 Chronic obstructive pulmonary disease, unspecified (principal); J30.9 Allergic rhinitis, unspecified; R91.1 Solitary pulmonary nodule; Z87.891 Personal history of nicotine dependence | CPT/HCPCS: 99214; Q3014 ==